=== PATIENT | male | born 1960 | race Caucasian/White ===

== ENCOUNTER 2021-06-17 16:05 | Emergency (ER) | payer MEDICARE ==
[~2021-06-17] VITALS: Ht 172.7 cm; Wt 77.3 kg
[2021-06-17 16:07] VITALS: BP 142/91
== END 2021-06-17 17:22 | disposition home or self-care (01) ==
LOC: EMS 16:15
DX: F41.9 Anxiety disorder, unspecified (principal); Z76.0 Encounter for issue of repeat prescription
CPT/HCPCS: 99281; Z7502